=== PATIENT | male | born 1945 | race Asian ===

== ENCOUNTER 2017-04-12 15:29 | Emergency (ER) | payer OTHER ==
[~2017-04-12] VITALS: Ht 170.2 cm; Wt 99.8 kg
[2017-04-12 16:07] VITALS: TEMP 98.7
[2017-04-12 17:37] VITALS: BP 170/72
== END 2017-04-12 17:37 | disposition home or self-care (01) ==
LOC: ED 15:29
DX: M25.561 Pain in right knee (principal)
CPT/HCPCS: 96372; 99283; J1885

== ENCOUNTER 2018-07-05 02:03 | Outpatient (CLI) | payer OTHER ==
[2018-07-05] MEDS ORDERED: AMLODIPINE BESYLATE PO (02:40)
[2018-07-05] MEDS ORDERED: TELMISARTAN80 MG PO (02:41)
[2018-07-05] MEDS ORDERED: BISO5TAB2 PO (02:41)
== END 2018-07-05 02:07 | disposition short-term general hospital (02) ==
LOC: AMB 02:03
DX: M79.671 Pain in right foot (principal)
CPT/HCPCS: A0425; A0427

== ENCOUNTER 2018-07-05 02:16 | Emergency (ER) | payer OTHER ==
[~2018-07-05] VITALS: Ht 170.2 cm; Wt 99.8 kg
[2018-07-05 02:16] VITALS: TEMP 97.9
[2018-07-05] MEDS ORDERED: AMLODIPINE BESYLATE PO (02:40)
[2018-07-05] MEDS ORDERED: BISO5TAB2 PO (02:41)
[2018-07-05] MEDS ORDERED: TELMISARTAN80 MG PO (02:41)
[2018-07-05 02:50] LABS: PLATELET COUNT 236 K/uL (142-355)
[2018-07-05 03:06] LABS: POTASSIUM 4.4 mmol/L (3.6-5.2)
[2018-07-05 04:03] VITALS: BP 128/75
== END 2018-07-05 04:10 | disposition home or self-care (01) ==
LOC: ED 02:16
PROVIDERS: Family Medicine
DX: M10.9 Gout, unspecified (principal)
CPT/HCPCS: 80053; 81000; 84550; 85027; 96372; 99283; J1885

== ENCOUNTER 2019-05-13 07:51 | Emergency (ER) | payer OTHER ==
[~2019-05-13] VITALS: Ht 170.2 cm; Wt 99.8 kg
[~2019-05-13 07:51] MED LIST: AMLODIPINE BESYLATE PO; BISO5TAB2 PO; TELMISARTAN80 MG PO
[2019-05-13 08:25] LABS: PLATELET COUNT 204 K/uL (142-355)
[2019-05-13 08:32] LABS: POTASSIUM 3.9 mmol/L (3.6-5.2)
[2019-05-13 08:39] LABS: PARTIAL THROMBOPLASTIN TIME 23.1 SECONDS (24.5-33.6)
[2019-05-13 11:00] VITALS: BP 138/85; TEMP 98
== END 2019-05-13 11:15 | disposition home or self-care (01) ==
LOC: ED 07:51
PROVIDERS: Hospitalist
DX: G45.9 Transient cerebral ischemic attack, unspecified (principal)
CPT/HCPCS: 80053; 85027; 85610; 85730; 93005; 99284

== ENCOUNTER 2019-09-06 19:58 | Observation (INO) | payer OTHER ==
[~2019-09-06] VITALS: Ht 170.2 cm; Wt 95.9 kg
[2019-09-06 20:26] VITALS: BP 149/56; TEMP 97.9
[2019-09-06] MEDS ORDERED: ASPI325T40 PO (20:27)
[2019-09-06 20:58] LABS: PLATELET COUNT 198 K/uL (142-355)
[2019-09-06 21:53] LABS: SODIUM 139 mmol/L (136-145)
[2019-09-07 00:05] VITALS: BP 142/46; TEMP 98.1; Ht 170.2 cm; Wt 95.9 kg
[2019-09-07 04:00] VITALS: BP 112/56; TEMP 98.4
[2019-09-07 08:04] VITALS: BP 152/68; TEMP 98.4
[2019-09-07 08:49] LABS: POTASSIUM 4.6 mmol/L (3.6-5.2)
== END 2019-09-07 11:11 | disposition home or self-care (01) ==
LOC: ED 19:58 → MED/SURG 22:47
PROVIDERS: Family Medicine; ADMIT Emergency Medicine
DX: E86.0 Dehydration (principal); I10 Essential (primary) hypertension; N17.8 Other acute kidney failure
CPT/HCPCS: 80053; 81000; 84484; 85027; 96360; 96361; 99220; 99284; G0378

== ENCOUNTER 2022-09-11 09:16 | Outpatient (CLI) | payer OTHER ==
[~2022-09-11 09:16] MED LIST changes: +ASPI325T40 PO
== END 2022-09-11 18:50 | disposition home or self-care (01) ==
LOC: US 09:16
PROVIDERS: ATTEND Nurse Practitioner Family
DX: N17.9 Acute kidney failure, unspecified (principal)

== ENCOUNTER 2022-11-16 09:00 | Emergency (ER) | payer OTHER ==
[~2022-11-16] VITALS: Ht 170.2 cm; Wt 101.6 kg
[2022-11-16 09:04] VITALS: TEMP 98.5
[2022-11-16] MEDS ORDERED: ROSUVASTATIN CAL5 MG PO (09:17)
[2022-11-16 10:25] VITALS: BP 179/69
== END 2022-11-16 10:25 | disposition home or self-care (01) ==
LOC: ED 09:00
DX: I10 Essential (primary) hypertension (principal); M79.641 Pain in right hand; M79.642 Pain in left hand; M13.841 Other specified arthritis, right hand; M13.842 Other specified arthritis, left hand
CPT/HCPCS: 96372; 99283; J1885; J2930